=== PATIENT | male | born 1985 | race Caucasian/White ===

== ENCOUNTER 2019-08-18 11:50 | Emergency (ER) | payer BC, OTHER ==
[2019-08-18] MEDS ORDERED: Aspirin 81 MG Tab.Chew ONE (12:12)
[2019-08-18] MEDS: Aspirin 81 MG Tab.Chew PO ONE (12:15)
[2019-08-18 12:59] LABS: ANION GAP 13.6 mmol/L (5-15); CHLORIDE,CL 104 mmol/L (98-115); SODIUM,NA 143 mmol/L (136-145)
--- NOTE | 2019-08-18 13:49 | CR ---
[id number] RAD/RAD Chest PA or AP 1V EXAM: RAD Chest PA or AP 1V INDICATION: CHEST PAIN. COMPARISON: None. DISCUSSION: Cardiomediastinal silhouette is normal in size and contour. No infiltrate, effusion, pneumothorax, or edema. IMPRESSION: No acute cardiopulmonary abnormality. Heath Moore DO 08/18/19 [id number] Thank you for allowing us to participate in the care of your patient.
--- NOTE | 2019-08-18 14:11 | EDM.PDOC ---
ED HPI GENERAL MEDICAL PROBLEM - General Chief Complaint: Chest Pain Stated Complaint: chest pain Time Seen by Provider: 08/18/19 11:50 Source of Information: Reports: Patient History Limitations: Reports: No Limitations - History of Present Illness INITIAL COMMENTS - FREE TEXT/NARRATIVE: 34-year-old morbidly obese male presents to emergency room with abrupt onset of chest pain at approximately 945 to 10:00 this morning. Patient reports pressure overlying left side of his chest with mild radiation to his left left shoulder. He denies any neck or jaw pain no back pain. His chest pain was described as pressure radiating it a 3 or 4 out of possible 10. Pressure would last anywhere from 10-15 seconds and come on every 2 minutes for approximately 30 minutes. He denied significant short of breath. He denied diaphoretic symptoms. His symptoms seem to improve with rest. He denies any significant prior history of cardiac. He states he does have high blood pressure but is trying some conservative measures such as diet and weight loss. He denies diabetes. He does state he has occasional panic attacks but is not taking any medication for this. He denies significant past family history of coronary artery disease, [place], stroke. He states that this pressure is a new onset that he has never experienced before and does not feel like his prior panic attacks he's had. He denies any reflux or heartburn symptoms. He has not had any abdominal pain. Onset: Today Onset Date: 08/18/19 Onset Time: 09:45 Duration: Hour(s):, Improving Location: Reports: Chest, Upper Extremity, Left Quality: Reports: Pressure Severity: Moderate Improves with: Reports: Rest Worsens with: Reports: Other (Exertion) Associated Symptoms: Reports: Chest Pain, Cough. Denies: Confusion, Diaphoresis , Fever/Chills (Dry cough), Headaches, Nausea/Vomiting, Shortness of Breath Chest Pain Score (Numeric/FACES): 5 - Related Data Allergies Allergy/AdvReac Type Severity Reaction Status Date / Time No Known Allergies Allergy Verified 08/18/19 13:07 Home Meds: Home Meds . [No Known Home Meds] 08/18/19 [History] Social & Family History - Tobacco Use Smoking Status *Q: Never Smoker - Alcohol Use Days Per Week of Alcohol Use: 7 Number of Drinks Per Day: 12 Total Drinks Per Week: 84 - Recreational Drug Use Recreational Drug Use: No ED ROS GENERAL - Review of Systems Review Of Systems: See Below Constitutional: Denies: Fever, Chills, Diaphoresis HEENT: Reports: No Symptoms Cardiovascular: Reports: Chest Pain, Blood Pressure Problem. Denies: Lightheadedness, Palpitations, Syncope Endocrine: Reports: No Symptoms GI/Abdominal: Reports: No Symptoms : Reports: No Symptoms Musculoskeletal: Reports: Shoulder Pain (Left shoulder) Skin: Denies: Cyanosis, Diaphoresis Neurological: Denies: Dizziness, Headache, Numbness, Paresthesia, Tingling, Trouble Speaking, Difficulty Walking Psychiatric: Reports: Anxiety Hematologic/Lymphatic: Reports: No Symptoms Immunologic: Reports: No Symptoms ED EXAM, GENERAL - Physical Exam Exam: See Below Free Text/Narrative:: 34-year-old white male, morbidly obese, mildly anxious, no acute distress nontoxic appearing Exam Limited By: No Limitations General Appearance: Alert, No Apparent Distress, Anxious, Obese Eye Exam: Bilateral Eye: EOMI, PERRL Ears: Hearing Grossly Normal Nose: Normal Inspection Throat/Mouth: Normal Oropharynx, Normal Voice, No Airway Compromise Head: Atraumatic, Normocephalic Neck: Normal Inspection, Supple, Non-Tender, Full Range of Motion Respiratory/Chest: No Respiratory Distress, Lungs Clear Cardiovascular: Normal Peripheral Pulses, Regular Rate, Rhythm Peripheral Pulses: 2+: Carotid (L), Carotid (R), Radial (L), Radial (R) GI/Abdominal: Soft, Non-Tender, Other (Obese abdomen) Back Exam: Normal Inspection Extremities: Normal Inspection, Normal Range of Motion Neurological: Alert, Oriented, No Motor/Sensory Deficits Psychiatric: Normal Affect, Anxious Skin Exam: Warm Lymphatic: No Adenopathy EKG INTERPRETATION EKG Date: 08/18/19 Time: 12:35 Rhythm: NSR Rate (Beats/Min): 63 [place]: Normal P-Wave: Present QRS: Normal ST-T: Normal QT: Normal Comparison: NA - No Prior EKG EKG Interpretation Comments: Normal sinus rhythm normal ECG Course - Vital Signs Last Recorded V/S: Last Vital Signs Temp 97 F 08/18/19 12:00 Pulse 72 08/18/19 12:00 Resp 20 08/18/19 12:00 BP 176/85 H 08/18/19 12:00 Pulse Ox 97 08/18/19 12:00 - Orders/Labs/Meds Orders: Active Orders 24 hr Category Date Time Status EKG Documentation Completion [RC] ASDIRECTED Care 08/18/19 11:56 Active EKG 12 Lead [EK] Stat Ther 08/18/19 11:55 Ordered Labs: Laboratory Tests 08/18/19 08/18/19 08/18/19 Range/Units 12:10 12:10 12:10 WBC 6.04 (5.00-10.00) 10^3/uL RBC 5.61 (4.50-6.00) 10^6/uL Hgb 16.5 (13.0-17.0) g/dL Hct 48.3 (40.0-52.0) % MCV 86.1 (82.0-92.0) fL MCH 29.4 (27.0-31.0) pg MCHC 34.2 (32.0-36.0) g/dL RDW 12.5 (11.5-14.5) % Plt Count 226 (150-400) 10^3/uL MPV 10.3 (7.4-10.4) fL Immature Gran % (Auto) 0.3 (0.0-5.0) % Neut % (Auto) 67.5 (50.0-70.0) % Lymph % (Auto) 21.2 (20.0-40.0) % [place] % (Auto) 7.5 (2.0-8.0) % Eos % (Auto) 2.8 (1.0-3.0) % Baso % (Auto) 0.7 (0.0-1.0) % Neut # (Auto) 4.08 (2.50-7.00) 10^3/uL Lymph # (Auto) 1.28 (1.00-4.00) 10^3/uL [place] # (Auto) 0.45 (0.10-0.80) 10^3/uL Eos # (Auto) 0.17 (0.10-0.30) 10^3/uL Baso # (Auto) 0.04 (0.00-0.10) 10^3/uL Immature Gran # (Auto) 0.02 (0.00-0.50) 10^3/uL D-Dimer, Quantitative < 100 (<400) ng/mL Sodium 143 (136-145) mmol/L Potassium 4.5 (3.3-5.3) mmol/L Chloride 104 (98-115) mmol/L Carbon Dioxide 29.9 (21.0-32.0) mmol/L Anion Gap 13.6 (5-15) mmol/L BUN 12 (6-25) mg/dL Creatinine 0.92 (0.51-1.17) mg/dL Est Cr Clr Drug Dosing TNP Estimated GFR (MDRD) > 60 mL/min Glucose 104 H (75 - 99) mg/dL Calcium 9.1 (8.7-10.3) mg/dL Total Bilirubin 0.5 (0.2-1.0) mg/dL AST 52 H (15-37) U/L ALT 79 H (12-78) U/L Alkaline Phosphatase 92 (46-116) IU/L Troponin I 0.08 H* (0.00-0.070) ng/mL Total Protein 8.0 (6.4-8.2) g/dL Albumin 3.67 (3.00-4.80) g/dL Lipase 125 (73-393) U/L Meds: Medications Discontinued Medications Generic Name Dose Route Start Last Admin Trade Name Freq PRN Reason Stop Dose Admin Aspirin 324 mg 08/18/19 12:12 08/18/19 12:15 Aspirin PO 08/18/19 12:13 324 mg ONETIME ONE Administration Aspirin Confirm 08/18/19 12:12 Aspirin Administered 08/18/19 12:13 Dose 324 mg .ROUTE .STK-MED ONE - Re-Assessments/Exams Free Text/Narrative Re-Assessment/Exam: 08/18/19 14:16 Patient was given 4 chewable aspirin. He reports that his chest pressure has a lessened. I discussed mildly elevated troponin with patient. I recommend further workup as this is a new onset of the angina symptoms which therefore makes this an unstable angina. Patient is agreement with further evaluation and transfer up to [facility]. Departure - Departure Time of Disposition: 13:45 Disposition: DC/Tfer to Critical Access [facility] Reason for Transfer *Q: Other Condition: Good Clinical Impression: New-onset angina, Acute coronary syndrome Instructions: Acute Coronary Syndrome, Angina, [id number] Referrals: Hortencia Zelaya NP [Primary Care Provider] - Sepsis Event Note - Evaluation Sepsis Screening Result: No Definite Risk - Focused Exam Vital Signs: Vital Signs Temp Pulse Resp BP Pulse Ox 08/18/19 12:00 97 F 72 20 176/85 H 97 Date Exam was Performed: 08/18/19 Time Exam was Performed: 14:06 - My Orders Last 24 Hours: My Active Orders 08/18/19 11:55 EKG 12 Lead [EK] Stat 08/18/19 11:56 EKG Documentation Completion [RC] ASDIRECTED - Assessment/Plan Last 24 Hours: My Active Orders 08/18/19 11:55 EKG 12 Lead [EK] Stat 08/18/19 11:56 EKG Documentation Completion [RC] ASDIRECTED Assessment:: New onset angina Uncontrolled hypertension Morbid Obesity Plan: 1. Patient is in stable condition. Further workup is indicated as this is a new onset of angina and mildly elevated troponin. Patient is transferred to [facility] for cardiac workup. Patient was transferred by ground ambulance.
== END 2019-08-18 13:45 ==
LOC: KA.ED 11:50
DX: I25.119 Atherosclerotic heart disease of native coronary artery with unspecified angina pectoris (principal); I10 Essential (primary) hypertension; E66.01 Morbid (severe) obesity due to excess calories; Z68.42 Body mass index [BMI] 45.0-49.9, adult
CPT/HCPCS: 36415; 71045; 80053; 83690; 84484; 85025; 85379; 93005; 99285-25; A9270-GY